=== PATIENT | female | born 1960 | race Caucasian/White ===

== ENCOUNTER 2016-05-27 10:14 | Emergency (ER) | payer BC ==
[~2016-05-27] VITALS: Ht 172.7 cm; Wt 160.0 kg
[~2016-05-27 10:14] MED LIST: CIPRO500 MG PO; LEVAQUIN500 MG PO; MEDROL DOSEPAK4 MG PO; ZESTRIL20 MG PO; ZOFRAN ODT4 MG PO
[2016-05-27 11:55] LABS: POINT-OF-CARE METER ID UU14100415
[2016-05-27 13:07] LABS: D-DIMER ELISA 0.37 mg/L FEU (< 0.57)
[2016-05-27] MEDS ORDERED: MOTRIN600 MG PO (13:25)
[2016-05-27] MEDS ORDERED: METFORMIN HCL1000 MG PO (13:30)
[2016-05-27] MEDS ORDERED: LISINOPRIL10 MG PO (13:30)
[2016-05-27 13:54] VITALS: BP 173/84
== END 2016-05-27 13:55 | disposition home or self-care (01) ==
LOC: EME 10:14 → EXP 10:14
PROVIDERS: Physician Assistant
DX: M54.6 Pain in thoracic spine (principal); E11.9 Type 2 diabetes mellitus without complications; I10 Essential (primary) hypertension; T38.3X6A Underdosing of insulin and oral hypoglycemic [antidiabetic] drugs, initial encounter; T46.4X6A Underdosing of angiotensin-converting-enzyme inhibitors, initial encounter; Z91.128 Patient's intentional underdosing of medication regimen for other reason; Z76.0 Encounter for issue of repeat prescription; Z88.1 Allergy status to other antibiotic agents
CPT/HCPCS: 82948; 85379; 93005; 99281; 99284